=== PATIENT | female | born 1985 | race Caucasian/White ===

== ENCOUNTER 2017-12-21 10:26 | Emergency (ER) | payer BC, MEDICAID ==
[~2017-12-21] VITALS: Ht 165.1 cm; Wt 90.0 kg
[~2017-12-21 10:26] MED LIST: IBUP-232 PO; OXYC1TAB63 PO; PREN0.01 PO
[2017-12-21 10:31] VITALS: BP 148/73; PULSE 73; RESP 16; TEMP 97.8; O2SAT 100
[2017-12-21] MEDS ORDERED: PROZ20CA11 PO (10:49)
[2017-12-21] MEDS ORDERED: LORA0.5T PO (10:49)
--- NOTE | 2017-12-21 10:59 | PD ---
HPI Chief Complaint: Chest Pain Time Seen by Provider: 10:47 Travel History International Travel<30 days: No Contact w/Intl Traveler<30days: No Traveled to known affect area: No History of Present Illness HPI Patient presents to the emergency department complaint of chest pain that began at 940 this morning. States the pain was sternal area and radiates throughout her chest. Does have history of anxiety but states that this pain is different. She is also on control. She took an anxiety medication which did not help the pain. Pain is described as being intermittent, 20 minutes in duration, worse with breathing and movement, alleviated with rest. She denies fever, chills, cough, recent travel, lower extremity edema, vomiting, but reports nausea. History Past Medical History Tetanus Vaccination: Unknown Influenza Vaccination: No Social History Alcohol Use: Yes (occasionally ) Tobacco Use: No Allergies-Medications (Allergen,Severity, Reaction): Coded Allergies: No Known Allergies (Verified , 09/12/11) Reported Meds & Prescriptions Reported Meds & Active Scripts Active Reported Lorazepam 0.5 Mg Tab 0.5 Mg PO Q6H PRN Prozac (Fluoxetine HCl) 20 Mg Cap 20 Mg PO DAILY Review of Systems Except as stated in HPI: all other systems reviewed are Neg Physical Exam Narrative GENERAL: No acute distress SKIN: Focused skin assessment warm/dry. HEAD: Atraumatic. Normocephalic. EYES: Pupils equal and round. No scleral icterus. No injection or drainage. ENT: No nasal bleeding or discharge. Mucous membranes pink and moist. NECK: Trachea midline. No JVD. CARDIOVASCULAR: Regular rate and rhythm. No murmur appreciated. Left sided chest wall tenderness to palpation. RESPIRATORY: No accessory muscle use. Clear to auscultation. Breath sounds equal bilaterally. GASTROINTESTINAL: Abdomen soft, non-tender, nondistended. Hepatic and splenic margins not palpable. MUSCULOSKELETAL: No obvious deformities. No clubbing. No cyanosis. No edema. NEUROLOGICAL: Awake and alert. No obvious cranial nerve deficits. Motor grossly within normal limits. Normal speech. PSYCHIATRIC: Appropriate mood and affect; insight and judgment normal. Data Data Last Documented VS Vital Signs Date Time Temp Pulse Resp B/P (MAP) Pulse Ox O2 Delivery O2 Flow Rate FiO2 12/21/17 11:03 99 Room Air 12/21/17 10:44 18 12/21/17 10:31 97.8 73 148/73 (98) Orders Orders Electrocardiogram (12/21/17 10:54) B-Type Natriuretic Peptide (12/21/17 10:54) Ckmb (Isoenzyme) Profile (12/21/17 10:54) Complete Blood Count With Diff (12/21/17 10:54) Comprehensive Metabolic Panel (12/21/17 10:54) D-Dimer (12/21/17 10:54) Magnesium (Mg) (12/21/17 10:54) Prothrombin Time / Inr (Pt) (12/21/17 10:54) Act Partial Throm Time (Ptt) (12/21/17 10:54) Troponin I (12/21/17 10:54) Chest, Single Ap (12/21/17 10:54) Ecg Monitoring (12/21/17 10:54) Iv Access Insert/Monitor (12/21/17 10:54) Oximetry (12/21/17 10:54) Aspirin (Aspirin) (12/21/17 11:00) Ed Urine Pregnancytest Poc (12/21/17 10:54) Ct Pulmonary Angiogram (12/21/17 11:49) Iohexol 350 Inj (Omnipaque 350 Inj) (12/21/17 12:13) Us Leg Venous Doppler Bilat (12/21/17 13:00) Troponin I (12/21/17 14:06) Labs Laboratory Tests Test 12/21/17 11:00 12/21/17 14:00 White Blood Count 7.2 TH/MM3 Red Blood Count 4.52 MIL/MM3 Hemoglobin 11.2 GM/DL Hematocrit 35.1 % Mean Corpuscular Volume 77.6 FL Mean Corpuscular Hemoglobin 24.7 PG Mean Corpuscular Hemoglobin Concent 31.9 % Red Cell Distribution Width 13.6 % Platelet Count 173 TH/MM3 Mean Platelet Volume 11.7 FL Neutrophils (%) (Auto) 64.9 % Lymphocytes (%) (Auto) 25.7 % Monocytes (%) (Auto) 7.4 % Eosinophils (%) (Auto) 1.4 % Basophils (%) (Auto) 0.6 % Neutrophils # (Auto) 4.7 TH/MM3 Lymphocytes # (Auto) 1.9 TH/MM3 Monocytes # (Auto) 0.5 TH/MM3 Eosinophils # (Auto) 0.1 TH/MM3 Basophils # (Auto) 0.0 TH/MM3 CBC Comment DIFF FINAL Differential Comment Prothrombin Time 10.2 SEC Prothromb Time International Ratio 1.0 RATIO Activated Partial Thromboplast Time 25.4 SEC D-Dimer Quantitative (PE/DVT) 1.01 MG/L FEU Blood Urea Nitrogen 11 MG/DL Creatinine 0.83 MG/DL Random Glucose 86 MG/DL Total Protein 7.5 GM/DL Albumin 3.6 GM/DL Calcium Level 8.7 MG/DL Magnesium Level 2.0 MG/DL Alkaline Phosphatase 77 U/L Aspartate Amino Transf (AST/SGOT) 15 U/L Alanine Aminotransferase (ALT/SGPT) 20 U/L Total Bilirubin 0.4 MG/DL Sodium Level 138 MEQ/L Potassium Level 3.7 MEQ/L Chloride Level 106 MEQ/L Carbon Dioxide Level 21.6 MEQ/L Anion Gap 10 MEQ/L Estimat Glomerular Filtration Rate 80 ML/MIN Total Creatine Kinase 96 U/L Troponin I LESS THAN 0.02 NG/ML LESS THAN 0.02 NG/ML B-Type Natriuretic Peptide 7 PG/ML MDM Medical Decision Making Medical Screen Exam Complete: Yes Emergency Medical Condition: Yes Interpretation(s) ECG: Sinus rhythm, rate 71, incomplete right bundle branch block, T-wave inversion in leads V1 V2, normal axis, normal intervals, QTC 395 Labs: Elevated d-dimer, slightly decreased hemoglobin, urine test negative Second troponin negative U/s: FINDINGS: Right Leg: Normal compression of the deep venous system from the inguinal region to the proximal calf. No echogenic clot is seen. Normal response of the venous system to augmentation and respiration. Left Leg: Normal compression of the deep venous system from the inguinal region to the proximal calf. No echogenic clot is seen. Normal response of the venous system to augmentation and respiration. Other: None. CONCLUSION: No DVT. Last Impressions CT Angiography 12/21/17 1149 Signed Impressions: CONCLUSION: 1. Limited evaluation of subsegmental branches of the left lower lobe. Otherwi se, no CT evidence for pulmonary artery embolism. 2. Unremarkable chest CTA examination. Chest X-Ray 12/21/17 1054 Signed Impressions: CONCLUSION: Negative examination. Differential Diagnosis ACS, PE, costochondritis Narrative Course Patient presents to the emergency department complaining of chest pain. Patient was placed on monitoring manager, IV access obtained, and chest x-ray/EKG/ labs ordered. She was also given 325 mg aspirin p.o. 1304: Based on CT results (unable to visualize subsegmental branches), will get ultrasound bilateral lower extremities to assess for DVT. Physician Communication Physician Communication 1303: Spoke to Dr. Montiel about CT results. Unable to visualize distal segments as CT read states. VQ scan will not likely be significantly more sensitive for distal segment branch PE in this patient. Diagnosis Primary Impression: Chest pain Qualified Codes: R07.9 - Chest pain, unspecified Patient Instructions: Chest Pain (ED), General Instructions Additional Instructions: 1. Meds as directed. 2. Follow-up with primary care doctor in 24-48 hours. 3. Return to ER immediately, shortness of breath, chest pain, vomiting, lower extremity swelling, or for any new/worrisome/worsening symptoms. Disposition: 01 DISCHARGE HOME Condition: Stable Lauren Baltazar MD Dec 21, 2017 10:59
[2017-12-21] MEDS ORDERED: ASPIRIN 325 MG TAB PO ONE (11:00)
[2017-12-21 11:03] VITALS: O2SAT 99
[2017-12-21 11:26] LABS: AUTOMATED NEUTROPHIL # 4.7 TH/MM3 (1.8-7.7); BASOPHIL % 0.6 % (0.0-2.0); EOSINOPHIL # 0.1 TH/MM3 (0-0.4); EOSINOPHIL % 1.4 % (0.0-4.0); HEMATOCRIT 35.1 % (35.0-46.0); HEMOGLOBIN 11.2 GM/DL (11.6-15.3); LYMPH % 25.7 % (9.0-44.0); LYMPHOCYTE # 1.9 TH/MM3 (1.0-4.8); MEAN CELL VOLUME 77.6 FL (80.0-100.0); MEAN CORPUSCULAR HEMOGLOBIN 24.7 PG (27.0-34.0); MEAN CORPUSCULAR HGB CONC 31.9 % (32.0-36.0); MEAN PLATELET VOLUME 11.7 FL (7.0-11.0); MONO % 7.4 % (0.0-8.0); MONOCYTE # 0.5 TH/MM3 (0-0.9); NEUT % 64.9 % (16.0-70.0); PLATELET COUNT 173 TH/MM3 (150-450); RED BLOOD COUNT 4.52 MIL/MM3 (4.00-5.30); RED CELL DISTRIBUTION WIDTH 13.6 % (11.6-17.2); WHITE BLOOD COUNT 7.2 TH/MM3 (4.0-11.0)
--- NOTE | 2017-12-21 11:27 | RADRPT ---
EXAM DATE: 12/21/2017 11:12 AM EDT AGE/SEX: 32 years / Female INDICATIONS: Chest pain. CLINICAL DATA: This is the patient's initial encounter. Patient reports that signs and symptoms have been present for 1 day and indicates a pain score of 1/10. MEDICAL/SURGICAL HISTORY: None. None. COMPARISON: No prior exams available for comparison. FINDINGS: A single AP view of the chest demonstrates the lungs to be symmetrically aerated without evidence of mass, infiltrate or effusion. The cardiomediastinal contours are unremarkable. Osseous structures a re intact. CONCLUSION: Negative examination. Electronically signed by: James Chatman MD 12/21/2017 11:25 AM EDT
[2017-12-21 11:41] LABS: ALBUMIN 3.6 GM/DL (3.4-5.0); AST (GOT) 15 U/L (15-37); BICARBONATE 21.6 MEQ/L (21.0-32.0); BLOOD UREA NITROGEN 11 MG/DL (7-18); CALCIUM 8.7 MG/DL (8.5-10.1); CHLORIDE 106 MEQ/L (98-107); CREATININE 0.83 MG/DL (0.50-1.00); GLOMERULAR FILTRATION RATE 80 ML/MIN (>89); GLUCOSE,RANDOM 86 MG/DL (74-106); SODIUM (NA) 138 MEQ/L (136-145)
[2017-12-21 11:42] LABS: ALT (GPT) 20 U/L (10-53)
[2017-12-21 11:44] LABS: D-DIMER 1.01 MG/L FEU (0.00-0.50); PROTHROMBIN TIME - PATIENT 10.2 SEC (9.8-11.6)
[2017-12-21 11:46] LABS: ALKALINE PHOSPHATASE 77 U/L (45-117); TOTAL BILIRUBIN ADULT 0.4 MG/DL (0.2-1.0); TOTAL PROTEIN 7.5 GM/DL (6.4-8.2); TROPONIN I LESS THAN 0.02 NG/ML (0.02-0.05)
[2017-12-21] MEDS ORDERED: IOHEXOL 350 MG/ML 10 ML VIAL (for RAD DIAG) IVCONTRAST ONE (12:13)
--- NOTE | 2017-12-21 12:27 | RADRPT ---
EXAM DATE: 12/21/2017 12:17 PM EDT AGE/SEX: 32 years / Female INDICATIONS: Chest pain,heart palpations CLINICAL DATA: This is the patient's initial encounter. Patient reports that signs and symptoms have been present for 1 day and indicates a pain score of 2/10. MEDICAL/SURGICAL HISTORY: None. section. RADIATION DOSE: 18.20 CTDI (mGy) COMPARISON: No prior exams available for comparison. TECHNIQUE: Volumetric scanning was performed using a multi-row detector CT scanner during bolus infu kirsten of 70 ml Omnipaque 350 (iohexol) nonionic water-soluble contrast as a single exam dose. The miguel a a was post processed with a variety of visualization algorithms including full volume maximum intensi ty projection and sliding thin slab reformation. Using automated exposure control and adjustment of the mA and/or kV according to patient size, radiation dose was kept as low as reasonably achievable t o obtain optimal diagnostic quality images. DICOM format image data is available electronically for review and comparison. FINDINGS: Pulmonary Arteries: No filling defects are seen in the pulmonary arteries through the proximal segme ntal vessels. There is incomplete opacification of multiple segmental branches of the left lower lobe . The main pulmonary artery is normal in diameter. Lung: No focal parenchymal abnormalities. Pleura: No effusion, significant pleural thickening or pneumothorax. Mediastinum: Heart is unremarkable without pericardial effusion.No evidence of mediastinal or hilar adenopathy. Osseous Structures: No abnormal focal lytic or blastic bony lesions. Other: Visulaized upper abdomen is unremarkable. CONCLUSION: 1. Limited evaluation of subsegmental branches of the left lower lobe. Otherwise, no CT evidence for pulmonary artery embolism. 2. Unremarkable chest CTA examination. Electronically signed by: Juan Montiel MD 12/21/2017 12:26 PM EDT
--- NOTE | 2017-12-21 13:53 | RADRPT ---
EXAM DATE: 12/21/2017 1:43 PM EDT AGE/SEX: 32 years / Female INDICATIONS: Bilateral leg swelling. CLINICAL DATA: This is the patient's initial encounter. Patient reports that signs and symptoms have been present for 1 day and indicates a pain score of 0/10. MEDICAL/SURGICAL HISTORY: . Glasses. Anxiety. Alcohol use. section. COMPARISON: No prior exams available for comparison. TECHNIQUE: Venous ultrasound of both lower extremities was performed from the inguinal ligament to t he proximal calf. Real-time, color Doppler and spectral tracing, compression and augmentation techni ques were used. FINDINGS: Right Leg: Normal compression of the deep venous system from the inguinal region to the proximal pat f. No echogenic clot is seen. Normal response of the venous system to augmentation and respiration. Left Leg: Normal compression of the deep venous system from the inguinal region to the proximal calf . No echogenic clot is seen. Normal response of the venous system to augmentation and respiration. Other: None. CONCLUSION: No DVT. Electronically signed by: Jeffrey Toledo MD 12/21/2017 1:52 PM EDT
--- NOTE | 2017-12-22 17:42 | EKG ---
Date Performed: 12/21/2017 Time Performed: 11:19:49 PTAGE: 32 years EKG: Sinus rhythm INCOMPLETE RIGHT BUNDLE BRANCH BLOCK BORDERLINE ECG INTERPRETATION BASED ON A DEFAULT AGE OF 40 YEAR S NO PREVIOUS TRACING DOCTOR: Jennifer Dietrich Interpretating Date/Time 12/22/2017 17:40:48
== END 2017-12-21 15:26 | disposition home or self-care (01) ==
LOC: NEPE 10:26
DX: R07.9 Chest pain, unspecified (principal); I45.10 Unspecified right bundle-branch block; R94.31 Abnormal electrocardiogram [ECG] [EKG]; R11.0 Nausea; F41.9 Anxiety disorder, unspecified
CPT/HCPCS: 71045; 71275; 80053; 82550; 83735; 83880; 84484; 84703; 85025; 85379; 85610; 85730; 93005; 93970; 99285; Q9967